=== PATIENT | female | born 1990 | race Hispanic/Latino ===

== ENCOUNTER 2023-11-23 18:55 | Emergency (ER) | payer SELFPAY ==
--- NOTE | ~2023-11-23 | US_ITS ---
EXAMINATION: US pelvic complete DATE: 11/23/2023 21:47 INDICATION: LLQ abd pain, r/o torsion. TECHNIQUE: Multiple transabdominal sonographic images of the pelvis were obtained. COMPARISON: None. FINDINGS: Uterus: 9.9 x 4.7 x 6.3 cm. Endometrial complex measures 7 mm. Right Ovary: 3.7 x 2.7 x 2.2 cm. Vascular flow is present. Left Ovary: 3.7 x 2.9 x 2.5 cm. Vascular flow is present. There is no free fluid in the pelvis. IMPRESSION: Normal transabdominal pelvic sonogram findings. Reviewed, dictated and finalized at location K.
--- NOTE | ~2023-11-23 | CT_ITS ---
EXAMINATION: CT abdomen pelvis wo con DATE: 11/23/2023 20:28 INDICATION: LLQ abd pain, L flank pain TECHNIQUE: Computed tomography (CT) of the abdomen and pelvis was performed without intravenous contr ast. Automated exposure control and iterative reconstruction technique were employed. The dose-length product was 417.96 mGy-cm. COMPARISON: None. FINDINGS: Lower thorax: Unremarkable Liver: Normal. Biliary/Gallbladder: Gallbladder is normal. No bile duct dilation. Pancreas: No mass or duct dilation. Spleen: Normal. Adrenals:No mass. Kidneys: No suspicious mass, obstructing stone, or hydronephrosis. GI tract: No small or large bowel dilation. Normal appendix. Mesentery/Peritoneum: No ascites, mass, or free air. Retroperitoneum: No mass. Pelvis: Pelvic organs are within normal limits. Soft Tissues: Soft tissues and body wall unremarkable. Bones: No acute osseous finding. IMPRESSION: No acute abdominopelvic process detected. Reviewed, dictated and finalized at location K.
[2023-11-23 18:59] VITALS: BP 119/70; PULSE 73; RESP 16; TEMP 36.5; O2SAT 100
--- NOTE | 2023-11-23 19:16 | ED.ABDPAIN ---
HPI - Abdominal Pain General Chief Complaint: Abdominal Pain Stated Complaint: abdominal pain Time Seen by Provider: 11/23/23 19:08 Source: patient Mode of arrival: ambulatory Limitations: no limitations and language barrier History of Present Illness HPI narrative: Patient is a 33 y/o female who presents to the ED with report of left lower abdominal pain. Patient is primarily Mongolian speaking. Family member at bedside assisted with translation. [employer] dealer was offered and declined. Patient reports having pain since 1:00 p.m. today. Pain has been constant since then. Radiates around to left lower back and occasionally into L sided groin. Denied improvement with ibuprofen. Pain worse with movement. Reports nausea, denies vomiting. Denies diarrhea, constipation, fevers, dysuria, hematuria, history kidney stones. Related Data Allergies Allergy/AdvReac Type Severity Reaction Status Date / Time No Known Allergies Allergy Verified 11/23/23 19:41 Review of Systems Review of Systems: CONSTITUTIONAL: Denies fever, chills, or sweats. GASTROINTESTINAL: See HPI. GENITOURINARY: Denies dysuria or hematuria. MUSCULOSKELETAL: See HPI. All systems reviewed & are unremarkable except as noted in HPI and below Exam Narrative: GENERAL: Well appearing, well-nourished, non-toxic, in no acute distress. HEAD: Normocephalic, atraumatic. RESPIRATORY: Airway patent, respirations nonlabored. Clear to auscultation bilaterally, no rales, rhonchi, wheezing. CARDIOVASCULAR: Regular rate and rhythm without murmurs, rubs, or gallops. ABDOMINAL: Soft, mild focal tenderness to palpation in left lower quadrant, suprapubic region, nondistended. Normoactive BS. No significant CVA tenderness to percussion. MUSCULOSKELETAL: Moves all extremities. No gross deformities. SKIN: Warm, dry, normal color. NEURO: A&O X3. Speech clear. PSYCHIATRIC: Appropriate mood and affect. Normal interaction. Course Vital Signs Vital signs: Vital Signs Temperature 97.7 F 11/23/23 18:59 Pulse Rate 73 11/23/23 18:59 Respiratory Rate 16 11/23/23 18:59 Blood Pressure 119/70 11/23/23 18:59 Pulse Oximetry 100 11/23/23 18:59 Oxygen Delivery Room Air 11/23/23 18:59 Temperature 97.7 F 11/23/23 18:59 Pulse Rate 72 03/17/24 19:43 Respiratory Rate 18 11/23/23 19:43 Blood Pressure 108/71 11/23/23 19:43 Pulse Oximetry 100 11/23/23 19:43 Oxygen Delivery Room Air 11/23/23 18:59 MDM - Abdominal Pain MDM Narrative Medical decision making narrative: Patient presented to ED with several hour onset of left lower quadrant abdominal pain, radiates to left flank. Vitals are stable upon arrival. Patient in no acute distress. No history of kidney stones or similar pain. Urinalysis is negative, no evidence of microscopic hematuria. Laboratories studies without leukocytosis, minimal anemia, stable electrolytes and kidney function. CT abdomen pelvis was obtained and unremarkable. No evidence of intra-abdominal abnormality. Will obtain pelvic ultrasound to rule out ovarian etiology. Pelvic ultrasound obtained and also unremarkable. No evidence of ovarian cysts or torsion. Good vascular blood flow noted to both ovaries. Patient feeling better with supportive therapy, pain much improved. Discussed lab and imaging findings. Discharge home, recommended close f/u with PCP for further evaluation. Given return precautions. Patient in agreement with plan. Discharged in stable condition. Medical Records Attestation: I reviewed the patient's medical records. Lab Data Attestation: I reviewed the patient's lab results. 11/23/23 19:57 11/23/23 21:14 Labs: Lab Results 11/23/23 11/23/23 11/23/23 Range/Units 19:26 19:57 21:14 WBC 5.6 (4.5-10.0) K/mm3 RBC 3.88 L (4.2-5.4) M/mm3 Hgb 11.6 L (12.0-15.0) g/dL Hct 34.8 L (37.0-47.0) % MCV 89.7 (80-100) fl MCH 29.9 (26-34) pg
[2023-11-23 19:33] LABS: Appearance Urine Clear (Clear); Bilirubin Urine Negative (Negative); Blood Urine Negative (Negative); Color Urine Yellow (Yellow); Glucose Urine UA Negative (Negative); Ketones Urine Negative (Negative); Leukocyte Esterase Ur Negative LEU/UL (Negative); Nitrate Urine Negative (Negative); Protein Urine Negative (Negative); Specific Grav Ur 1.019 (1.001-1.035); pH Urine 6.5 (5.0-9.0)
[2023-11-23 19:43] VITALS: BP 108/71; PULSE 72; RESP 18; O2SAT 100
[2023-11-23 19:45] LABS: Add Urine Microscopic? NO
[2023-11-23] MEDS: SODIUM CHLORIDE 0.9% IV 1,000 ML 999 ML IV CONT (19:56)
[2023-11-23] MEDS: MORPHINE SULFATE (*CRX) 4 MG/ML INJ IV PUSH (19:56)
[2023-11-23] MEDS: ONDANSETRON INJ 4 MG/2 ML VIAL IV PUSH (19:56)
[2023-11-23 20:04] LABS: Basophils Percent Auto 0.4 % (0.2-1.2); Eosinophils Absolute Auto 0.1 K/mm3 (0-0.3); Eosinophils Percent Auto 1.3 % (0-4.4); Hematocrit 34.8 % (37.0-47.0); Hemoglobin 11.6 g/dL (12.0-15.0); Immature Granulocyte Absolute 0.01 K/mm3 (0.00-0.031); Immature Granulocyte Percent A 0.2 % (0-0.5); Lymphocytes Percent Auto 50.1 % (18.3-44.2); Mean Corpuscular HGB Conc 33.3 g/dl (32-36); Mean Corpuscular Hemoglobin 29.9 pg (26-34); Mean Corpuscular Volume 89.7 fl (80-100); Mean Platelet Volume 10.2 fl (7.4-10.4); Monocytes Absolute Auto 0.4 K/mm3 (0.1-0.6); Monocytes Percent Auto 6.4 % (2.6-8.5); Neutrophils Absolute Auto 2.3 K/mm3 (1.3-6.7); Neutrophils Percent Auto 41.6 % (45.5-73.1); Platelet Count Result 254 k/mm3 (150-375); Red Blood Count 3.88 M/mm3 (4.2-5.4); Red Cell Distribution Width 13.2 % (11.5-14.5); White Blood Count 5.6 K/mm3 (4.5-10.0)
[2023-11-23 21:36] LABS: Alanine Aminotransferase 27 U/L (6-35); Albumin Level 3.9 g/dL (3.5-5.1); Alkaline Phosphatase 60 U/L (38-126); Anion Gap 7 mmol/L (8-16); Aspartate Amino Transferase 25 U/L (14-36); Bilirubin,Total 0.4 mg/dL (0.2-1.3); Blood Urea Nitrogen 16 mg/dL (7-17); Calcium 8.7 mg/dL (8.4-10.2); Carbon Dioxide 24 mmol/L (22-30); Chloride 109 mmol/L (98-107); Estimated CRCL calculation 108 ml/min; Estimated Glomerular Filt Rate > 60; Glucose 86 mg/dL (65-110); Lipase 83 U/L (23-300); Potassium 3.6 mmol/L (3.4-5.0); Sodium 140 mmol/L (137-145)
[2023-11-23 22:25] VITALS: RESP 18
== END 2023-11-23 22:25 | disposition home or self-care (01) ==
PROVIDERS: Student in an Organized Health Care Education/Training Program; Emergency Provider Physician Assistant
DX: R10.32 Left lower quadrant pain (principal)
CPT/HCPCS: 36415; 74176; 76856; 80053; 81025; 83690; 85025; 96361; 96374; 96375; 99284; J2270; J2405; J7030